=== PATIENT | female | born 1945 | race Caucasian/White ===

== ENCOUNTER → 2017-06-23 | Outpatient (CLI) | payer MEDICARE ==
[~2017-06-23] MED LIST: ATOR20TA15 PO; CALC-131 PO; LATA.005%O OU; LATA0.002 EACH EYE; LEVO100T4 PO; LEVO100T5 PO; LIPI20TA PO; LORTA5 PO; RIVA10 PO; VITA1000 PO
--- NOTE | 2017-06-23 10:38 | RADRPT ---
EXAM DATE/TIME: 06/23/2017 10:08 [place] COMPARISON: No previous studies available for comparison. INDICATIONS : Evaluate for pneumonia, pneumothorax or communicable disease. Pre op for hemorrhoidectomy 06-30-17 MEDICAL HISTORY : None. SURGICAL HISTORY : Hysterectomy. biopsy on right breast for tumor ENCOUNTER: Initial ACUITY: 1 day PAIN SCORE: 0/10 LOCATION: Bilateral chest FINDINGS: PA and lateral views of the chest demonstrate the lungs to be symmetrically aerated without evidence of mass, infiltrate or effusion. The cardiomediastinal contours are unremarkable. Osseous structure s are intact. CONCLUSION: No acute disease. Rudy Andersen MD on June 23, 2017 at 10:37 Board Certified Radiologist. This report was verified electronically.
[2017-06-23 10:55] LABS: AUTOMATED NEUTROPHIL # 2.6 TH/MM3 (1.8-7.7); BASOPHIL % 0.8 % (0.0-2.0); HEMATOCRIT 43.9 % (35.0-46.0); HEMO FLAGS DIFF FINAL; LYMPH % 34.3 % (9.0-44.0); LYMPHOCYTE # 1.7 TH/MM3 (1.0-4.8); MEAN CELL VOLUME 90.8 FL (80.0-100.0); MEAN CORPUSCULAR HEMOGLOBIN 31.3 PG (27.0-34.0); MEAN CORPUSCULAR HGB CONC 34.5 % (32.0-36.0); MONO % 10.7 % (0.0-8.0); NEUT % 53.2 % (16.0-70.0); PLATELET COUNT 287 TH/MM3 (150-450); RED BLOOD COUNT 4.83 MIL/MM3 (4.00-5.30); RED CELL DISTRIBUTION WIDTH 13.6 % (11.6-17.2); WHITE BLOOD COUNT 4.9 TH/MM3 (4.0-11.0)
[2017-06-23 11:08] LABS: INTERNATIONAL NORMALIZED RATIO 0.9 RATIO; PROTHROMBIN TIME - PATIENT 10.3 SEC (9.8-11.6)
[2017-06-23 11:10] LABS: BACTERIA, URINE RARE /hpf; BLOOD, URINE NEG (NEG); COMMENT (UR) CULT NOT INDICATED; CULTURE IF INDICATED CULT NOT INDICATED; GLUCOSE,URINE NEG (NEG); KETONE, URINE NEG (NEG); NITRITE,URINE NEG (NEG); PH, URINE 6.5 (5.0-8.5); SQUAMOUS EPITHELIAL CELL URINE 1 /hpf (0-5); URINE COLOR LIGHT-YELLOW (YELLW/STRAW)
[2017-06-23 11:21] LABS: ALT (GPT) 20 U/L (10-53); ANION GAP 8 MEQ/L (5-15); AST (GOT) 16 U/L (15-37); BICARBONATE 28.8 MEQ/L (21.0-32.0); BLOOD UREA NITROGEN 17 MG/DL (7-18); CHLORIDE 104 MEQ/L (98-107); GLOMERULAR FILTRATION RATE 62 ML/MIN (>89); GLUCOSE,FASTING 90 MG/DL (74-99); POTASSIUM 4.1 MEQ/L (3.5-5.1); SODIUM (NA) 141 MEQ/L (136-145)
[2017-06-23 11:23] LABS: ALKALINE PHOSPHATASE 71 U/L (45-117); TOTAL BILIRUBIN ADULT 0.8 MG/DL (0.2-1.0)
--- NOTE | 2017-06-23 14:54 | EKG ---
Date Performed: 06/23/2017 Time Performed: 09:23:53 PTAGE: 71 years EKG: Sinus rhythm MARKED LEFT AXIS DEVIATION ABNORMAL ECG PREVIOUS TRACING : 09/01/2014 09.40 DOCTOR: Byron Lopes Interpretating Date/Time 06/23/2017 14:51:47
== END ==
LOC: CPRE 08:59
PROVIDERS: ATTEND Colon & Rectal Surgery
DX: Z01.812 Encounter for preprocedural laboratory examination (principal); Z01.810 Encounter for preprocedural cardiovascular examination; Z01.811 Encounter for preprocedural respiratory examination; K62.5 Hemorrhage of anus and rectum; K64.2 Third degree hemorrhoids; R94.31 Abnormal electrocardiogram [ECG] [EKG]
CPT/HCPCS: 36415; 71020; 80053; 81001; 85025; 85610; 85730; 93005

== ENCOUNTER → 2017-06-30 | Day surgery (SDC) | payer MEDICARE ==
[~2017-06-30] VITALS: Ht 167.6 cm; Wt 66.8 kg
[~2017-06-30] MED LIST changes: +*morphine SULFATE 8 MG/ML PERIprocedure ONLY ONE; +ACETAMINOPHEN 1000 MG/100 ML VIAL IV ONE; +BUPIVACAINE LIPOSOME PF 1.3% 20 ML VIAL INFIL ONE; +BUPIVACAINE/EPINEPHRINE 0.5% PF 10 ML VIAL ONE; +CHLORHEXIDINE GLUCONATE 2 % 1 PACK (2 CLOTHS) TOPICAL PRN; +DO NOT ADM ANY ANTICOAGULANT DRUGS PRN; +FAMOTIDINE 20 MG/2 ML VIAL ONE; +GELFOAM SIZE 100 ONE; +GELFOAM SIZE 100 OTHER ONE; +INSULIN HUMAN REGULAR 1,000 UNITS/10 ML VIAL SQ PRN; +LACTATED RINGER'S 1000 ML IV PRN; -LATA.005%O OU; -LEVO100T4 PO; +LIDOCAINE 2% JELLY 30 ML TUBE ONE; +LIDOCAINE HCL 1% PF 10 ML VIAL ONE; -LIPI20TA PO; -LORTA5 PO; +METOPROLOL TARTRATE 25 MG TAB PO PRN; +MIDAZOLAM HCL 2 MG/2 ML VIAL ONE; +MORPHINE SULFATE 4 MG/ML INJ IM PRN; +ONDANSETRON HCL 4 MG/2 ML VIAL IV PUSH PRN; +PHENYLEPH/NS 1000 MCG/10 ML SYR IV ONE; +POVIDONE IODINE 5% (ANTISEPSIS KIT) 4 APPLICATIONS EACH NARE PRN; +PROPOFOL 200 MG/20 ML AMP IV ONE; -RIVA10 PO; +SODIUM CHLORID 0.9% 500 ML IV PRN; +ePHEDrine/NS 25 MG/5 ML SYR IV ONE; +fentaNYL CITRATE 250 MCG/5 ML AMP ONE; +oxyCODONE/ACETAMINOPHEN 10 MG/325 MG TAB PO PRN
[2017-06-30 07:15] VITALS: BP 144/91; PULSE 94; RESP 20; O2SAT 96
[2017-06-30 13:15] VITALS: BP 120/86; PULSE 75; RESP 18; TEMP 97; O2SAT 96
--- NOTE | 2017-06-30 22:39 | MP ---
cc: JODI ESPARZA M.D., KATHRYN M. MD, R3 DATE OF SURGERY 06/30/17 PREPROCEDURE DIAGNOSIS Rectal bleeding. Third degree hemorrhoids. POSTPROCEDURE DIAGNOSIS Rectal bleeding. Third degree hemorrhoids. PROCEDURE Three quadrant hemorrhoidectomy. SURGEON Amber Esparza MD ANESTHESIA MAC Normal. FINDINGS Large hemorrhoids. PROCEDURE IN DETAIL The patient was brought to the operating room and placed in the supine position. After colonoscopy, the patient was then placed in the left lateral decubitus position. The skin of the buttocks was then taped apart and the perineal area was prepped and draped in the usual sterile fashion. 20 mL of Exparel was rehydrated with 30 mL of sterile saline and injected. An ischiorectal block was performed with this, and additional Exparel was injected circumferentially around the anus. Beginning in the right lateral position, the hemorrhoidal complex was grasped and pulled away from the underlying internal sphincter muscle. A V-shaped incision was made, with the apex of V being located 2-3 cm distal to the anal verge. The hemorrhoidal complex was then carefully dissected free from the underlying internal sphincter muscle and amputated. She had very brisk bleeding throughout all of the procedure. The pedicle was suture ligated in a figure-of- eight fashion using 3-0 Vicryl, and the mucosal defect was closed in a running fashion using 3-0 Vicryl. Attention was then turned to the left lateral hemorrhoidal complex, which was somewhat more posterior than typical. This was removed in the same fashion. The hemorrhoid in the right anterior position was then removed in the same fashion as well. An additional suture was required in the left lateral position to control bleeding. At the close of the procedure, there was no significant bleeding. A rectal tampon was then placed with Gelfoam wrapped in a Lidocaine soaked gauze. All sponge, needle and instrument counts were correct and the patient was returned to the post anesthesia care unit in stable condition. MD BRIJESH Gray/ /11:15 AM /10:28 PM [facility]
--- NOTE | 2017-06-30 23:27 | MR ---
cc: JODI ESPARZA M.D. DATE June 30 1017 PREPROCEDURE DIAGNOSIS 1. Rectal bleeding. 2. Screening. 3. Diverticulosis POSTPROCEDURE DIAGNOSIS 1. Rectal bleeding. 2. Screening. 3. Diverticulosis PROCEDURE Total colonoscopy. SURGEON Isaias ANESTHESIA IV sedation, MAC monitored anesthesia care. PROCEDURE COURSE The procedure was performed in the operating room due to the subsequent surgery. After IV sedation she was placed in the left lateral decubitus position. Digital rectal examination was performed. The colonoscope was introduced into the anus and advanced to the cecum with a moderate amount of difficulty, which was controlled with abdominal wall pressure. The cecum was recognized by the triradiate folds, ileocecal valve and appendiceal orifice. The colonoscope was then withdrawn, with a notation of moderate alejandra colonic diverticulosis with no other abnormalities. The patient tolerated the procedure well. We then proceeded with her surgery. Jodi Esparza MD KW/NILDA /11:13 AM /11:10 PM [facility]
== END | disposition home or self-care (01) ==
LOC: HSDC 06:36
PROVIDERS: ATTEND Colon & Rectal Surgery
DX: K64.2 Third degree hemorrhoids (principal); K57.30 Diverticulosis of large intestine without perforation or abscess without bleeding; E78.5 Hyperlipidemia, unspecified; H40.9 Unspecified glaucoma; K62.5 Hemorrhage of anus and rectum; Z85.42 Personal history of malignant neoplasm of other parts of uterus; Z79.899 Other long term (current) drug therapy
CPT/HCPCS: 00902; 45378; 46255; 86850; 86900; 86901; 88304; C9290; J2250; J2270; J2370; J2405; J3010; J0131